=== PATIENT | female | born 1995 | race Caucasian/White ===

== ENCOUNTER 2017-12-16 10:42 | Emergency (ER) | payer SELFPAY ==
--- NOTE | 2017-12-16 11:04 | EDM.PDOC ---
ED HPI GENERAL MEDICAL PROBLEM - General Chief Complaint: Upper Extremity Injury/Pain Stated Complaint: LT SHOULDER INJURY Time Seen by Provider: 12/16/17 11:00 Source of Information: Reports: Patient History Limitations: Reports: No Limitations - History of Present Illness INITIAL COMMENTS - FREE TEXT/NARRATIVE: The patient presents with left shoulder pain. She was moving a hide a bed couch and the couch fell and jerked her left shoulder and also landed on her shoulder. She has no other injury. She also has had a macular rash to her upper abdomen and back. She has this for 6 months. It will get worse and go back down at times. She says it does not itch to much. She has no new detergents, soaps or lotions. She did not see anyone for this. Onset: Sudden Duration: Day(s): Location: Reports: Upper Extremity, Left (shoulder) Quality: Reports: Sharp Severity: Moderate Improves with: Reports: Immobilization Worsens with: Reports: Movement Context: Reports: Activity (She was moving a couch) Associated Symptoms: Reports: No Other Symptoms Left Shoulder Pain Score (Numeric/FACES): 10 - Related Data Allergies Allergy/AdvReac Type Severity Reaction Status Date / Time No Known Allergies Allergy Verified 12/16/17 11:01 Home Meds: Home Meds Hydrocodone/Acetaminophen [Hydrocodon-Acetaminophen 5-325] 1 - 2 each PO Q6HR PRN #10 tablet 12/16/17 [Rx] Hydrocortisone [Hydrocortisone 2.5% Crm] 30 gm .XX BID #1 tube 12/16/17 [Rx] Past Medical History - Past Health History Medical/Surgical History: Denies Medical/Surgical History Social & Family History - Tobacco Use Smoking Status *Q: Current Every Day Smoker Years of Tobacco use: 10 Packs/Tins Daily: 0.5 - Recreational Drug Use Recreational Drug Use: No Review of Systems - Review of Systems Review Of Systems: See Below Constitutional: Reports: No Symptoms Eyes: Reports: No Symptoms Ears: Reports: No Symptoms Nose: Reports: No Symptoms Mouth/Throat: Reports: No Symptoms Respiratory: Reports: No Symptoms Cardiovascular: Reports: No Symptoms GI/Abdominal: Reports: No Symptoms Genitourinary: Reports: No Symptoms Musculoskeletal: Reports: Shoulder Pain (Left) ED EXAM, GENERAL - Physical Exam Exam: See Below Exam Limited By: No Limitations General Appearance: Alert, No Apparent Distress Ears: Normal External Exam Nose: Normal Inspection Head: Atraumatic, Normocephalic Neck: Normal Inspection Respiratory/Chest: No Respiratory Distress Extremities: Other (Pain upon palpation to the left shoulder. Good sensation and pulses distally.) Skin Exam: Rash (Macullar rash to the back and upper abdomen) Course - Vital Signs Last Recorded V/S: Last Vital Signs Temp 98.1 F 12/16/17 10:45 Pulse 58 L 12/16/17 10:45 Resp 17 12/16/17 10:45 BP 165/92 H 12/16/17 10:45 Pulse Ox 98 12/16/17 10:45 - Orders/Labs/Meds Orders: Active Orders 24 hr Category Date Time Status Shoulder Comp Lt [CR] Stat Exams 12/16/17 11:20 Taken - Re-Assessments/Exams Free Text/Narrative Re-Assessment/Exam: 12/16/17 11:44 Her x-ray looks good. I will give her something for the pain and have her follow up with OT. I will also get her on some hydrocortisone cream for her rash. It appears to be eczema. Departure - Departure Time of Disposition: 11:55 Disposition: Home, Self-Care 01 Condition: Good Clinical Impression: Sprain of left shoulder Qualifiers: Encounter type: initial encounter Shoulder sprain type: unspecified sprain Qualified Code(s): S43.402A - Unspecified sprain of left shoulder joint, initial encounter Eczema Qualifiers: Eczema type: unspecified Qualified Code(s): L30.9 - Dermatitis, unspecified - Discharge Information Prescriptions: Hydrocodone/Acetaminophen [Hydrocodon-Acetaminophen 5-325] 1 - 2 each PO Q6HR PRN #10 tablet PRN Reason: Pain Hydrocortisone [Hydrocortisone 2.5% Crm] 30 gm .XX BID #1 tube Referrals: PCP,None [Primary Care Provider] - Elena Orr MD [Physician] - 1 Week Forms: ED Department Discharge Additional Instructions: Take the hydrocodone as needed for pain. Take motrin or aleve for pain. Follow up with occupational therapy for your shoulder. Apply the hydrocortisone 2 times per day for over a week. Please return if you are worse. - My Orders Last 24 Hours: My Active Orders 12/16/17 11:20 Shoulder Comp Lt [CR] Stat - Assessment/Plan Last 24 Hours: My Active Orders 12/16/17 11:20 Shoulder Comp Lt [CR] Stat
--- NOTE | 2017-12-16 13:13 | CR ---
Left shoulder: Three views of the left shoulder were obtained. Comparison: No prior shoulder study. Acromioclavicular and glenohumeral joints appear within normal limits. No fracture, dislocation or other bony abnormality is seen. Impression: 1. No abnormality is seen on left shoulder study. Diagnostic code #1
== END 2017-12-16 12:27 | disposition home or self-care (01) ==
LOC: JD.ED 10:42
DX: S43.402A Unspecified sprain of left shoulder joint, initial encounter (principal); L30.9 Dermatitis, unspecified; F17.210 Nicotine dependence, cigarettes, uncomplicated; W20.8XXA Other cause of strike by thrown, projected or falling object, initial encounter
CPT/HCPCS: 73030-26-LT; 73030-LT; 99283

== ENCOUNTER 2019-11-01 13:02 | Emergency (ER) | payer SELFPAY ==
--- NOTE | 2019-11-01 14:30 | EDM.PDOC ---
ED HPI GENERAL MEDICAL PROBLEM - General Chief Complaint: Skin Complaint Stated Complaint: KNOT IN LEFT BREAST Time Seen by Provider: 11/01/19 13:18 Source of Information: Reports: Patient History Limitations: Reports: No Limitations - History of Present Illness INITIAL COMMENTS - FREE TEXT/NARRATIVE: Patient is a 24-year-old female who presents with complaints of a painful lump below her left nipple. She states this lump is been present for 8 to 9 months, however did reduce in size. About 3 days ago it began growing in size and became painful. She feels it is larger than it was initially. She has no fever , chills, nausea, vomiting, or diarrhea. She is not on any hormonal contraception. She does not have a primary care provider and has not seen a provider for this. Left Breast Pain Score (Numeric/FACES): 3 - Related Data Allergies Allergy/AdvReac Type Severity Reaction Status Date / Time No Known Allergies Allergy Verified 11/01/19 13:14 Home Meds: Home Meds Doxycycline [Vibramycin] 100 mg PO BID #20 tab 11/01/19 [Rx] Past Medical History - Past Health History Medical/Surgical History: Denies Medical/Surgical History Cardiovascular History: Reports: None Respiratory History: Reports: None Gastrointestinal History: Reports: None [employer] History: Reports: None Musculoskeletal History: Reports: None Neurological History: Reports: None Psychiatric History: Reports: None Endocrine/Metabolic History: Reports: Obesity/BMI 30+ Hematologic History: Reports: None Immunologic History: Reports: None Oncologic (Cancer) History: Reports: None Dermatologic History: Reports: None - Infectious Disease History Infectious Disease History: Reports: None - Past Surgical History HEENT Surgical History: Reports: Myringotomy w Tube(s), Oral Surgery, Other ( See Below) Other HEENT Surgeries/Procedures: Reconstructive surgery to the left ear drum. Female Surgical History: Reports: Tubal Ligation Social & Family History - Tobacco Use Smoking Status *Q: Current Every Day Smoker Years of Tobacco use: 10 Packs/Tins Daily: 0.5 - Caffeine Use Caffeine Use: Reports: Soda - Recreational Drug Use Recreational Drug Use: No ED ROS GENERAL - Review of Systems Review Of Systems: Comprehensive ROS is negative, except as noted in HPI. ED EXAM, SKIN/RASH Exam: See Below Exam Limited By: No Limitations General Appearance: Alert, WD/WN, No Apparent Distress Respiratory/Chest: No Respiratory Distress, Lungs Clear, Normal Breath Sounds, No Accessory Muscle Use, Chest Non-Tender Cardiovascular: Normal Peripheral Pulses, Regular Rate, Rhythm, No Edema, No Gallop, No JVD, No Murmur, No Rub Skin: Other (Small, palpable nodule belief the left nipple. There is slight redness to the medial aspect of the nipple. Area is tender to palpation. No discharge present from the nipple. No obvious adenopathy.) Course - Vital Signs Last Recorded V/S: Last Vital Signs Temp 97.6 F 11/01/19 13:11 Pulse 64 11/01/19 13:11 Resp 16 11/01/19 13:11 BP 141/78 H 11/01/19 13:11 Pulse Ox 100 11/01/19 13:11 - Re-Assessments/Exams Free Text/Narrative Re-Assessment/Exam: 11/01/19 15:43 Ultrasound of the breast shows a 1.3 x 0.7 x 1.1 cm hypoechoic area seen next to the nipple. Radiologist recommends correlation with signs of infection. Patient does have tenderness and there is slight redness lateral to the nipple. We will treat with doxycycline 100 mg twice daily for 10 days. I would recommend that she follows up with 1 of the [employer] providers to monitor the progress and discuss possible I&D/biopsy as needed. Discharge instructions as documented. Departure - Departure Time of Disposition: 15:45 Disposition: Home, Self-Care 01 Condition: Fair Clinical Impression: Abscess - Discharge Information *PRESCRIPTION DRUG MONITORING PROGRAM REVIEWED*: No *COPY OF PRESCRIPTION DRUG MONITORING REPORT IN PATIENT ELKIN: No Prescriptions: Doxycycline [Vibramycin] 100 mg PO BID #20 tab Instructions: Skin Abscess Referrals: PCP,None [Primary Care Provider] - Forms: ED Department Discharge Additional Instructions: You were seen in the emergency department today for a painful, firm nodule below your left nipple. Ultrasound does show that there is a 1.3 x 0.7 x 1.1 cm fluid-filled nodule below the nipple. Since this is tender and there is some slight redness to the surface of the skin, it is likely this is an abscess. We will treat with doxycycline. Take this medication as prescribed. Recommend that you call to schedule follow-up appointment either late next week or early the following week with 1 of our [employer] providers in the clinic. A list of the clinic providers has been given to you. Return to the ER as needed. Sepsis Event Note - Evaluation Sepsis Screening Result: No Definite Risk - Focused Exam Vital Signs: Vital Signs Temp Pulse Resp BP Pulse Ox 11/01/19 13:11 97.6 F 64 16 141/78 H 100 Date Exam was Performed: 11/01/19 Time Exam was Performed: 15:42
--- NOTE | 2019-11-01 15:28 | US ---
Left breast ultrasound: Multiple real-time images were obtained over palpable abnormality. Hypoechoic area seen next to the nipple within the subareolar region measuring 1.3 x 0.7 x 1.1 cm. Slight increased surrounding vascularity is seen. Impression: 1. Finding as noted above. Please correlate if patient has any symptoms of infection for this to represent developing abscess. If no signs of infection are present, biopsy is then recommended. Diagnostic code #9
== END 2019-11-01 16:22 | disposition home or self-care (01) ==
LOC: JD.ED 13:02
DX: N61.1 Abscess of the breast and nipple (principal); E66.9 Obesity, unspecified; Z68.31 Body mass index [BMI] 31.0-31.9, adult; F17.210 Nicotine dependence, cigarettes, uncomplicated
CPT/HCPCS: 76642-LT; 76642-LT-26; 99283; 99283-25

== ENCOUNTER 2020-02-08 09:01 | Emergency (ER) | payer SELFPAY ==
--- NOTE | 2020-02-08 09:16 | EDM.PDOC ---
ED HPI GENERAL MEDICAL PROBLEM - General Chief Complaint: Abdominal Pain Stated Complaint: ACID REFLUX Time Seen by Provider: 02/08/20 09:14 - History of Present Illness INITIAL COMMENTS - FREE TEXT/NARRATIVE: 24-year-old female presents the emergency room with abdominal complaints. Patient states that she is having worsening heartburn and reflux symptoms. She is also having problems with irregular periods. And has drainage from her bellybutton. Her heartburn has been going on for a while at times she has reflux bad enough to wake her up at night with this acid burning sensation in the back of her throat. It is uncertain how long this is been going on but seems to be getting worse over the last month or so. She tried some of her [id number]'s indigestion pills that were big and yellow and they did not seem to help. The patient vomits at times bringing up bilious material that mendoza. She also has intermittent loose stools Patient is also having problems with drainage from her bellybutton. She is using hydrogen peroxide and there but she still gets some intermittent drainage. The patient had a tubal ligation roughly 5 years ago and has not had any problems with . However her periods have become less regular she is now 2 weeks late for her period to start. Epigastric Pain Score (Numeric/FACES): 5 - Related Data Allergies Allergy/AdvReac Type Severity Reaction Status Date / Time No Known Allergies Allergy Verified 02/08/20 09:18 Home Meds: Home Meds Pantoprazole Sodium [Protonix] 40 mg PO Q24H #30 tablet. 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 Female Surgical History: Reports: Tubal Ligation Social & Family History - Caffeine Use Caffeine Use: Reports: Soda ED ROS GENERAL - Review of Systems Review Of Systems: See Below Constitutional: Reports: Decreased Appetite. Denies: No Symptoms HEENT: Reports: No Symptoms Respiratory: Reports: No Symptoms Cardiovascular: Reports: No Symptoms Endocrine: Reports: Fatigue GI/Abdominal: Reports: No Symptoms : Reports: Irregular Menses. Denies: Flank Pain, Frequency, Urgency Skin: Reports: Bruising Neurological: Reports: No Symptoms Psychiatric: Reports: No Symptoms Hematologic/Lymphatic: Reports: No Symptoms Immunologic: Reports: No Symptoms ED EXAM, GI/ABD - Physical Exam Exam: See Below Exam Limited By: No Limitations General Appearance: Alert, No Apparent Distress Head: Atraumatic, Normocephalic Neck: Normal Inspection, Supple, Non-Tender, Full Range of Motion, Other (Thyroid is palpable but not grossly enlarged no obvious nodules) Cardiovascular: Regular Rate, Rhythm, No Edema, No Murmur GI/Abdominal Exam: Normal Bowel Sounds, Soft, Other (Palpable tenderness over the midepigastric area and left upper quadrant. Minimal discomfort in the right upper quadrant or elsewhere in the abdomen no rigidity rebound or guarding appreciated.) Back Exam: Normal Inspection. No: CVA Tenderness (L), CVA Tenderness (R) Extremities: Normal Inspection, No Pedal Edema Neurological: Alert, Oriented, Normal Cognition Course - Vital Signs Last Recorded V/S: Last Vital Signs Temp 36.2 C 02/08/20 09:15 Pulse 93 02/08/20 09:15 Resp 16 02/08/20 09:15 BP 140/93 H 02/08/20 09:15 Pulse Ox 100 02/08/20 09:15 - Orders/Labs/Meds Labs: Laboratory Tests 02/08/20 02/08/20 02/08/20 Range/Units 09:50 09:50 09:50 WBC 7.79 (3.98-10.04) K/mm3 RBC 4.57 (3.98-5.22) M/mm3 Hgb 14.5 (11.2-15.7) gm/dl Hct 42.6 (34.1-44.9) % MCV 93.2 (79.4-94.8) fl MCH 31.7 (25.6-32.2) pg MCHC 34.0 (32.2-35.5) g/dl RDW Std Deviation 42.7 (36.4-46.3) fL Plt Count 226 (182-369) K/mm3 MPV 9.8 (9.4-12.3) fl Neut % (Auto) 60.7 (34.0-71.1) % Lymph % (Auto) 30.6 (19.3-51.7) % Parke % (Auto) 4.6 L (4.7-12.5) % Eos % (Auto) 3.5 (0.7-5.8) Baso % (Auto) 0.5 (0.1-1.2) % Neut # (Auto) 4.73 (1.56-6.13) K/mm3 Lymph # (Auto) 2.38 (1.18-3.74) K/mm3 Parke # (Auto) 0.36 (0.24-0.36) K/mm3 Eos # (Auto) 0.27 (0.04-0.36) K/mm3 Baso # (Auto) 0.04 (0.01-0.08) K/mm3 Sodium 141 (136-145) mEq/L Potassium 4.3 (3.5-5.1) mEq/L Chloride 105 (98-107) mEq/L Carbon Dioxide 28 (21-32) mEq/L Anion Gap 12.3 (5-15) BUN 16 (7-18) mg/dL Creatinine 1.0 (0.55-1.02) mg/dL Est Cr Clr Drug Dosing 67.43 mL/min Estimated GFR (MDRD) > 60 (>60) mL/min BUN/Creatinine Ratio 16.0 (14-18) Glucose 101 (74-106) mg/dL Calcium 9.2 (8.5-10.1) mg/dL Total Bilirubin 0.3 (0.2-1.0) mg/dL AST 13 L (15-37) U/L ALT 31 (14-59) U/L Alkaline Phosphatase 62 (46-116) U/L Total Protein 7.7 (6.4-8.2) g/dl Albumin 4.0 (3.4-5.0) g/dl Globulin 3.7 gm/dL Albumin/Globulin Ratio 1.1 (1-2) Lipase 134 (73-393) U/L TSH 3rd Generation 0.790 (0.358-3.74) uIU/mL HCG, Qual Negative (NEGATIVE) Meds: Medications Discontinued Medications Generic Name Dose Route Start Last Admin Trade Name Venkata PRN Reason Stop Dose Admin Al Hydroxide/Mg Hydroxide 30 0 ml 02/08/20 09:33 02/08/20 09:40 ml/ Lidocaine HCl 15 ml PO 02/08/20 09:34 45 ml ONETIME ONE Administration - Re-Assessments/Exams Free Text/Narrative Re-Assessment/Exam: 02/08/20 11:08 Laboratory evaluation is unrevealing. The patient is doing much better after GI cocktail. We will start her on Carafate for 6 days and Protonix daily recommend she establish with a regular provider and follow-up with them soon after 15 February. Departure - Departure Time of Disposition: 11:09 Disposition: Home, Self-Care 01 Clinical Impression: Dyspepsia, Gastroesophageal reflux disease - Discharge Information Referrals: PCP,None [Primary Care Provider] - Forms: ED Department Discharge, ED Return to Work/School Form Additional Instructions: Return to the emergency room with any questions problems or worsening symptoms. Established with the clinic and faby in follow-up after 15 February. Discussed with him your irregular periods. And any other issues. Take the medications as we discussed you have been taking the Carafate for 6 days. And have given you a months worth of the Protonix. Take the Carafate with each meal and at bedtime and you will take the Protonix 1 hour before your morning meal. Sepsis Event Note (ED) - Focused Exam Vital Signs: Vital Signs Temp Pulse Resp BP Pulse Ox 02/08/20 09:15 36.2 C 93 16 140/93 H 100
[2020-02-08] MEDS ORDERED: Alum Hydrox/Mag Hydrox/Simeth 30 ML, Lidocaine 2% 15 ML PO ONE ×2 (09:33)
[2020-02-08] MEDS ORDERED: Sucralfate 1 GM Tab PO ONE (11:09)
== END 2020-02-08 11:27 | disposition home or self-care (01) ==
LOC: JD.ED 09:01
DX: K21.9 Gastro-esophageal reflux disease without esophagitis (principal); E66.9 Obesity, unspecified; Z68.25 Body mass index [BMI] 25.0-25.9, adult
CPT/HCPCS: 36415; 80053; 83690; 84443; 84703; 85025; 99284; A9270; 99283